=== PATIENT | male | born 1965 | race Caucasian/White ===

== ENCOUNTER 2020-07-04 20:12 | Inpatient (IN) | payer MEDICARE ==
[~2020-07-04] VITALS: Ht 172.7 cm; Wt 74.8 kg
[2020-07-04 21:13] LABS: HEMOGLOBIN 16.5 gm/dl (14.0-17.5); RED BLOOD COUNT 5.34 M/UL (4.20-5.50); WHITE BLOOD COUNT 10.3 K/UL (4.5-11.0)
[2020-07-05 02:42] LABS: HEMOGLOBIN 15.2 gm/dl (14.0-17.5); RED BLOOD COUNT 4.95 M/UL (4.20-5.50); WHITE BLOOD COUNT 10.5 K/UL (4.5-11.0)
[2020-07-05] MEDS ORDERED: COZAAR 50MG TAB50 MG PO (03:04)
[2020-07-05] MEDS ORDERED: HYDROCHLOROTHIA25 MG PO (03:05)
[2020-07-06 03:01] LABS: RED BLOOD COUNT 4.6 M/UL (4.20-5.50); WHITE BLOOD COUNT 13.3 K/UL (4.5-11.0)
[2020-07-06 03:17] LABS: BUN/CREATININE RATIO 38 (0-10)
[2020-07-07 06:07] LABS: RED BLOOD COUNT 4.64 M/UL (4.20-5.50)
[2020-07-07 06:08] LABS: WHITE BLOOD COUNT 17.2 K/UL (4.5-11.0)
[2020-07-07 06:23] LABS: BUN/CREATININE RATIO 34 (0-10)
[2020-07-08 04:02] LABS: HEMOGLOBIN 14.2 gm/dl (14.0-17.5); RED BLOOD COUNT 4.68 M/UL (4.20-5.50); WHITE BLOOD COUNT 18.4 K/UL (4.5-11.0)
[2020-07-08 04:26] LABS: BUN/CREATININE RATIO 32 (0-10)
[2020-07-08] MEDS ORDERED: PROAIR HFA8.5 GM INH (10:56)
[2020-07-08] MEDS ORDERED: DOXYCYCLINE MO100 MG PO (10:56)
[2020-07-08] MEDS ORDERED: PREDNISONE20 MG PO (10:56)
[2020-07-08] MEDS ORDERED: MUCINEX1200 MG PO (10:56)
--- NOTE | 2020-07-08 11:59 | NUR ---
INSTRUCTED ON NEW SCRIPTS, TAKE MEDS PRESCRIBED. VERBALIZED UNDERSTANDING. BRANDIE OTERO R.N.
--- NOTE | 2020-07-08 12:24 | NUR ---
VERBALIZED SHOULD HAVE PAIN MED SCRIPT. INSTRUCTED PATIENT ON NEW MEDS WITHOUT ANY PAIN MED ORFDERED. SPOKE WITH DR. ZELAYA NO PAIN MED NEEDED. CAN CHECK WITH PCP VERBALIZED UNDERSTANDING. UNHAPPY WITH MD R/T NO PAIN SCRIPT GIVEN. BRANDIE OTERO R.N.
== END 2020-07-08 12:23 | disposition home or self-care (01) | DRG 291 ==
LOC: ER1 20:12 → M/S 23:20 → CDU 23:20 → M/S 07-05 08:24
PROVIDERS: Emergency Medicine; Internal Medicine; ADMIT Family Medicine
PROC: 5A09357 Assistance with Respiratory Ventilation, Less than 24 Consecutive Hours, Continuous Positive Airway Pressure (ICD-10-PCS; 2020-07-04)
PROC: B24BZZZ Ultrasonography of Heart with Aorta (ICD-10-PCS; principal; 2020-07-05)
DX: I11.0 Hypertensive heart disease with heart failure (principal); J96.01 Acute respiratory failure with hypoxia; J44.1 Chronic obstructive pulmonary disease with (acute) exacerbation; I50.33 Acute on chronic diastolic (congestive) heart failure; Z20.822 Contact with and (suspected) exposure to COVID-19; Z87.891 Personal history of nicotine dependence; Z79.899 Other long term (current) drug therapy; F41.9 Anxiety disorder, unspecified; D72.828 Other elevated white blood cell count; T38.0X5A Adverse effect of glucocorticoids and synthetic analogues, initial encounter; R73.9 Hyperglycemia, unspecified; G89.29 Other chronic pain; M54.5 Low back pain
CPT/HCPCS: ECHO; 0240U; 36415; 36600; 71045; 80048; 80053; 80061; 82550; 82553; 82803; 83036; 83605; 83690; 83735; 83874; 83880; 84100; 84484; 85025; 85027; 85610; 85730; 86140; 87040; 93005; 93306; 94640; 94660; 94664; 94760; 96365; 96375; 99285; J0456; J0696; J1650; J1940; J2920; J2930; J7030; Q0177; Q9967

== ENCOUNTER 2021-04-29 15:29 | Emergency (ER) | payer MEDICARE ==
[~2021-04-29 15:29] MED LIST: COZAAR 50MG TAB50 MG PO; DOXYCYCLINE MO100 MG PO; HYDROCHLOROTHIA25 MG PO; MUCINEX1200 MG PO; PREDNISONE20 MG PO; PROAIR HFA8.5 GM INH
[2021-04-29 15:51] LABS: HEMOGLOBIN 13.2 gm/dl (14.0-17.5); RED BLOOD COUNT 4.48 M/UL (4.20-5.50); WHITE BLOOD COUNT 11.7 K/UL (4.5-11.0)
[2021-04-29] MEDS ORDERED: BENZONATATE200 MG PO (18:30)
[2021-04-29] MEDS ORDERED: MEDROL4 MG PO (18:30)
[2021-04-29] MEDS ORDERED: ZITHROMAX250 MG PO (18:30)
== END 2021-04-29 18:34 | disposition home or self-care (01) ==
LOC: ER1 15:29
PROVIDERS: Physician Assistant
DX: J44.1 Chronic obstructive pulmonary disease with (acute) exacerbation (principal)
CPT/HCPCS: 71045; 80053; 85025; 93005; 99284